=== PATIENT | male | born 1965 | race Caucasian/White ===

== ENCOUNTER → 2020-05-01 | Emergency (ER) | payer OTHER ==
[~2020-05-01] VITALS: Ht 185.4 cm; Wt 102.1 kg
[~2020-05-01] MED LIST: ASPIRIN325 PO; ATORVASTATIN CA40 MG PO; BIOTIN PLUS KE1 EACH PO; COZAAR 25 MG TA25 M1 PO; DIPHENHIST50 MG PO; EFFIENT10 MG PO; GINGER500 MG PO; IBUPROFEN 600600 M1 PO; KRILL OIL 3001 EACH PO; MELATONIN3 MG PO; METOPROLOL TART25 MG PO; MILK THISTLE500 MG PO; NOHOMEMEDICATIONS; POTASSIUM GLUC500 MG PO; ZINC50 M1 PO
[2020-05-01 13:28] LABS: AMP/METHAMP Negative (Negative); BARBITURATES Negative (Negative); BENZODIAZEPINES Negative (Negative); COCAINE Negative (Negative); METHADONE Negative (Negative); OPIATES Negative (Negative); PCP Negative (Negative)
[2020-05-01 13:32] LABS: ABSOLUTE NEUTROPHILS 4.2 thou/uL (1.4-8.2); BASOPHILS 0.4 % (0.0-2.0); EOSINOPHILS 1.8 % (0.0-3.0); HEMATOCRIT 46.2 % (42.0-52.0); HEMOGLOBIN 15.8 gm/dL (14.0-18.0); LYMPHOCYTES 26.9 % (24.0-44.0); MCH 30.5 pg (26.0-34.0); MCHC 34.2 g/dL (28.0-37.0); MCV 89.5 fL (80.0-100.0); MONOCYTES 9.8 % (1.0-8.0); PLATELET COUNT 179 thou/uL (150-400); POLYS 61.1 % (36.0-66.0); RBC 5.17 mil/uL (4.50-6.00); RDW 14.2 % (10.5-14.5); WBC 6.9 thou/uL (4.0-11.0)
[2020-05-01 13:37] LABS: ANION GAP 10 mmol/L (7-16); BUN 21 mg/dL (7-18); CALCIUM 9.2 mg/dL (8.5-10.1); CHLORIDE 104 mmol/L (98-107); CO2 27 mmol/L (21-32); CREATININE 1.1 mg/dL (0.7-1.3); GLUCOSE 130 mg/dL (74-106); POTASSIUM 3.9 mmol/L (3.5-5.1); SODIUM 141 mmol/L (136-145)
[2020-05-01 13:44] LABS: APTT 30.3 Seconds (24.5-32.8); INR 1.1; PROTIME 10.8 Seconds (9.3-11.4)
--- NOTE | 2020-05-01 13:46 | EKG ---
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 Pt: [facility] : 1965 Requested By: Freedom Stewart Order Number: [id number] MD: Akil Milton Measurements Intervals [place] Rate: 89 P: 52 WV: 174 QRS: 4 QRSD: 97 T: -21 QT: 376 QTc: 458 Interpretive Statements Sinus rhythm Borderline T abnormalities, inferior leads Compared to ECG 05/26/2015 07:12:43 T-wave abnormality now present Atrial premature complex(es) no longer present Ventricular premature complex(es) no longer present Electronically Signed On 05-01-2020 13:46:09 CDT by Akil Milton [email or web address] <ELECTRONICALLY SIGNED> By: Akil Milton MD, FAC 05/01/20 1346 1317 1317 Akil Milton MD, FAC /EPI
[2020-05-01 13:47] LABS: ALBUMIN 4.1 g/dL (3.4-5.0); SGOT 23 U/L (15-37); SGPT 41 U/L (30-65); TOTAL BILIRUBIN 0.4 mg/dL (0.2-1.0); TROPONIN-I <0.06 ng/mL (<0.06)
[2020-05-01 14:59] VITALS: BP 136/75
== END ==
LOC: ER 12:27
PROVIDERS: Emergency Medicine
DX: R20.0 Anesthesia of skin (principal); M79.602 Pain in left arm; M79.601 Pain in right arm; F17.210 Nicotine dependence, cigarettes, uncomplicated; Z91.09 Other allergy status, other than to drugs and biological substances

== ENCOUNTER 2020-11-30 13:19 | Emergency (ER) | payer OTHER ==
[~2020-11-30] VITALS: Ht 182.9 cm; Wt 102.1 kg
--- NOTE | ~2020-11-30 | EMS ---
[address] [address] EMS Patient Care Report Name: SHAHEEN POTTS Room #: DEP [facility]#: [id number] Admission: 11/30/20 Attend Phys: Discharge: 11/30/20 Date of : 61 Report #: [id number] THIS REPORT FOR: //name// Report Transmitted: 11/30/2020 16:13 EMS Care Summary [place], [place]/[facility] Incident [id number] @ 11/30/2020 12:58 Incident Location [address] [place] [id number] Patient SHAHEEN POTTS Male, 55 Years 1965 Patient Address [address] [place], [place] [id number] Patient History Cardiac - Stent, Patient Allergies Morphine, Patient Medications ASA, Chief Complaint SVT Disposition Transported No Lights/[place] Dispatch Reason Chest Pain (Non-Traumatic) Transported To [facility] Narrative FIND [facility]. PT IS COMPLAINING OF A SUDDEN ONSET OF CHEST PAIN AND SOA. PT STATES THAT IT JUST STARTED. PT STATES THAT HE ALSO GOT DIAPHORETIC. PT HAS FAST RADIAL PULSE . PT IS MOVED TO COT AND ON EKG. PT IS IN SVT. PT IS MOVED TO UNIT AND A IV IS PLACED. PT IS GIVEN ADENOSINE AND CONVERTS [address] [address] EMS Patient Care Report Name: SHAHEEN POTTS Room #: [facility]#: [id number] Admission: 11/30/20 Attend Phys: Discharge: 11/30/20 Date of : 61 Report #: [id number] TO SINUS TACH. A 2ND 12 LEAD IS DONE AND SHOWS NO ST ELEVATION. PT STATES THAT HE IS FELLING A LITTLE BETTER. PT MAKES NO OTHER COMPLAINTS OR CHANGES IN ROUTE. PT CARE IS TOT RN IN ROOM 8 Initial Vitals @13:03P: 191,SpO2: 96, @13:14P: 105,CO: 0,SpO2: 98, @13:04P: 202, @13:06P: 193,SpO2: 96, @13:08P: 193,BP: 123/86,Pain: 2/10,GCS: 15,SpO2: 96, @13:04P: 199,R: 18,BP: 106/76,Pain: 6/10,GCS: 15,Glucose: 107,SpO2: 95,Revised Trauma: 12,OK Suspected: false Assessments @13:03MENTAL:No Abnormalities,SKIN:HEENT:LUNG SOUNDS:ABDOMEN:PELVIS//GI:EXTREMITIES:PULSE:NEURO: Impression Cardiac arrhythmia/dysrhythmia Procedures @13:1412-Lead ECGResponse: UnchangedSucceeded@13:0612-Lead ECGResponse: UnchangedSucceeded@13:03ALS AssessmentResponse: UnchangedSucceeded@13:043-Lead ECGResponse: UnchangedSucceeded@13:06Saline Lock 10cc (18 ga) Site: Antecubital-LeftResponse: UnchangedSucceeded@13:07Adenosine - 12 Milligrams (mg) - Intravenous (IV)Response: Improved@13:06Oxygen FlowRate: 2 Device: Nasal Cannula (NC) Response: UnchangedSucceeded Timeline 12:56,Call Received 12:56,Dispatch Notified 12:58,Dispatched 12:59,En Route 13:01,On Scene 13:03,At Patient 13:03,ALS Assessment,Response: UnchangedSucceeded, 13:03,BP: / M,PULSE: 191,RR: R,SPO2: 96 Ox,ETCO2: ,BG: ,PAIN: ,GCS: , 13:04,BP: / M,PULSE: 202,RR: R,SPO2: Ox,ETCO2: ,BG: ,PAIN: ,GCS: , 13:04,3-Lead ECG,Response: UnchangedSucceeded, 13:04,BP: 106/76 M,PULSE: 199,RR: 18 R,SPO2: 95 Ox,ETCO2: ,B,PAIN: 6,GCS: 15, 13:06,Saline Lock 10cc 18 ga Site: Antecubital-Left,Response: UnchangedSucceeded, 13:06,Oxygen FlowRate: 2 Device: Nasal Cannula (NC) Response: UnchangedSucceeded, 13:06,12-Lead ECG,Response: UnchangedSucceeded, [address] [address] EMS Patient Care Report Name: SHAHEEN POTTS Room #: DEP [facility]#: [id number] Admission: 11/30/20 Attend Phys: Discharge: 11/30/20 Date of : 61 Report #: [id number] 13:06,BP: / M,PULSE: 193,RR: R,SPO2: 96 Ox,ETCO2: ,BG: ,PAIN: ,GCS: , 13:07,Adenosine - 12 Milligrams (mg) - Intravenous (IV),Response: Improved 13:08,BP: 123/86 M,PULSE: 193,RR: R,SPO2: 96 Ox,ETCO2: ,BG: ,PAIN: 2,GCS: 15, 13:12,Depart Scene 13:14,12-Lead ECG,Response: UnchangedSucceeded, 13:14,BP: / M,PULSE: 105,RR: R,SPO2: 98 Ox,ETCO2: ,BG: ,PAIN: ,GCS: , 13:24,At Destination 13:30,Call Closed Disclaimer v1.1 Copyright 2020 [email or web address] This EMS Care Summary contains data elements from the applicable legal record (which may be displayed differently). It is designed to provide pertinent information for the following purposes: continuity of care, clinical quality, and state data reporting. The complete legal record is available to ED staff and administrators of the receiving hospital in [employer]'s Patient Tracker. All data is provided "as is."
[2020-11-30 13:35] LABS: ABSOLUTE NEUTROPHILS 4.5 thou/uL (1.4-8.2); BASOPHILS 0.8 % (0.0-2.0); EOSINOPHILS 1.8 % (0.0-3.0); HEMATOCRIT 47.2 % (42.0-52.0); HEMOGLOBIN 16.3 gm/dL (14.0-18.0); LYMPHOCYTES 30.6 % (24.0-44.0); MCH 30.4 pg (26.0-34.0); MCHC 34.5 g/dL (28.0-37.0); MCV 88.4 fL (80.0-100.0); MONOCYTES 7.8 % (1.0-8.0); PLATELET COUNT 197 thou/uL (150-400); RBC 5.35 mil/uL (4.50-6.00); RDW 14.3 % (10.5-14.5); WBC 7.7 thou/uL (4.0-11.0)
[2020-11-30 13:46] LABS: ANION GAP 14 mmol/L (7-16); BUN 16 mg/dL (7-18); CALCIUM 9.1 mg/dL (8.5-10.1); CHLORIDE 105 mmol/L (98-107); CO2 24 mmol/L (21-32); CREATININE 1.3 mg/dL (0.7-1.3); GLUCOSE 137 mg/dL (74-106); POTASSIUM 3.7 mmol/L (3.5-5.1); SODIUM 143 mmol/L (136-145)
[2020-11-30 13:51] LABS: ALBUMIN 3.9 g/dL (3.4-5.0); SGOT 31 U/L (15-37); SGPT 49 U/L (16-63); TOTAL BILIRUBIN 0.5 mg/dL (0.2-1.0); TOTAL PROTEIN 7.9 g/dL (6.4-8.2); TROPONIN-I <0.06 ng/mL (<0.06)
[2020-11-30 14:02] LABS: APTT 26.8 Seconds (24.5-32.8); D-DIMER 0.38 ug/mLFEU (0.19-0.50); INR 1.03; PROTIME 11.2 Seconds (10.5-12.1)
[2020-11-30 15:10] VITALS: BP 108/85
--- NOTE | 2020-11-30 15:56 | EKG ---
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: : 1965 Requested By: Emanuel Stover Order Number: [id number] MD: Akil Milton Measurements Intervals [place] Rate: 107 P: 68 MT: 159 QRS: 38 QRSD: 96 T: -61 QT: 348 QTc: 465 Interpretive Statements Sinus tachycardia Borderline repolarization abnormality Compared to ECG 05/01/2020 13:17:48 Sinus rhythm no longer present T-wave abnormality no longer present Electronically Signed On 11-30-2020 15:56:04 CDT by Akil Milton [email or web address] <ELECTRONICALLY SIGNED> By: Akil Milton MD, [facility] 11/30/20 1556 1326 1326 Akil Milton MD, FACC /EPI
== END 2020-11-30 15:11 | disposition home or self-care (01) ==
LOC: ER 13:19
PROVIDERS: Emergency Medicine
DX: I47.1 Supraventricular tachycardia (principal); F17.210 Nicotine dependence, cigarettes, uncomplicated; F41.9 Anxiety disorder, unspecified; I25.10 Atherosclerotic heart disease of native coronary artery without angina pectoris

== ENCOUNTER 2021-06-01 10:29 | Emergency (ER) | payer OTHER ==
[~2021-06-01] VITALS: Ht 182.9 cm; Wt 99.8 kg
--- NOTE | ~2021-06-01 | EMS ---
[address] [address] EMS Patient Care Report Name: SHAHEEN POTTS Room #: DEP [facility]#: [id number] Admission: 06/01/21 Attend Phys: Discharge: 06/01/21 Date of : 61 Report #: [id number] THIS REPORT FOR: //name// Report Transmitted: 06/03/2021 14:37 EMS Care Summary [place], [place]/[facility] Incident [id number] @ 06/01/2021 10:06 Incident Location [address] [place] [id number] Patient SHAHEEN POTTS Male, 56 Years 1965 Patient Address unknown Patient History Cardiac Arrythmia,Cardiac Condition - Other,Cardiac - Stent, Patient Allergies No known allergies, Patient Medications Nitroglycerin, Chief Complaint SVT Disposition Transported No Lights/[place] Dispatch Reason Sick Person Transported To [facility] Narrative Upon arrival PT was in the upright sitting position. PT had a CC of CP with onset of 9am this morning. PT stated he had taken a Nitro prior to EMS arrival. PT was assisted to stretcher and taken to back of ambulance for further medical evaluation and intervention. PT was then monitored while en route to hospital for any change in condition. [address] [address] EMS Patient Care Report Name: SHAHEEN POTTS Room #: [facility] [id number] Admission: 06/01/21 Attend Phys: Discharge: 06/01/21 Date of : 61 Report #: [id number] Initial Vitals @10:14P: 190,R: 18,BP: 117/84,Pain: 6/10,GCS: 15,SpO2: 15,Revised Trauma: 12, @10:19P: 185,R: 18,BP: 108/78,Pain: 6/10,GCS: 15,SpO2: 100,Revised Trauma: 12, Assessments @10:12MENTAL:No Abnormalities,SKIN:No Abnormalities,HEENT:Head/Face: No Abnormalities,Eyes: No Abnormalities,Neck/Airway: No Abnormalities,LUNG SOUNDS:General: No Abnormalities,Left Upper: No Abnormalities,Right Upper: No Abnormalities,Left Lower: No Abnormalities,Right Lower: No Abnormalities,ABDOMEN:General: No Abnormalities,Left Upper: No Abnormalities,Right Upper: No Abnormalities,Left Lower: No Abnormalities,Right Lower: No Abnormalities,PELVIS//GI:No Abnormalities,EXTREMITIES:PULSE:Radial: 2+ Normal,NEURO:No Abnormalities, Impression Chest Pain / Discomfort Procedures @10:12 ALS Assessment Response: UnchangedSucceeded @10:15 12-Lead ECG Response: UnchangedSucceeded @10:15 IV Therapy - Saline Lock 0cc (20 ga) Site: Antecubital-Right Response: UnchangedSucceeded @10:16 Aspirin - 324 Milligrams (mg) - Oral Response: Unchanged @PTANitrostat - 0.4 Milligrams (mg) - Sublingual Response: Unchanged @10:22 Adenosine - 12 Milligrams (mg) - Intravenous (IV) Response: Unchanged 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,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 - 0.4 Milligrams (mg) - Sublingual,Response: Unchanged 10:04,Call Received 10:04,Dispatch Notified 10:06,Dispatched 10:07,En Route 10:11,On Scene 10:12,At Patient 10:12,ALS Assessment,Response: UnchangedSucceeded, 10:14,BP: 117/84 M,PULSE: 190,RR: 18 R,SPO2: 15 Ox,ETCO2: ,BG: ,PAIN: 6,GCS: 15, 10:15,12-Lead ECG,Response: UnchangedSucceeded, 10:15,IV Therapy - Saline Lock 0cc 20 ga Site: Antecubital-Right,Response: UnchangedSucceeded, 10:16,Aspirin - 324 Milligrams (mg) - Oral,Response: Unchanged 10:19,BP: 108/78 M,PULSE: 185,RR: 18 R,SPO2: 100 Ox,ETCO2: ,BG: ,PAIN: 6,GCS: 15, 10:22,Adenosine - 12 Milligrams (mg) - Intravenous (IV),Response: Unchanged [facility] [address] [place] [address] EMS Patient Care Report Name: SHAHEEN POTTS Lo Room #: [facility]ina#: [id number] Admission: 06/01/21 Attend Phys: Discharge: 06/01/21 Date of : 61 Report #: [id number] 10:25,Depart Scene 10:25,At Destination 10:43,Call Closed Disclaimer v1.1 Copyright 202 [employer] This EMS Care Summary contains data elements from the applicable legal record (which may be displayed differently). It is designed to provide pertinent information for the following purposes: continuity of care, clinical quality, and state data reporting. The complete legal record is available to ED staff and administrators of the receiving hospital in [employer]'s Patient Tracker. All data is provided "as is."
[2021-06-01 12:03] LABS: ABSOLUTE NEUTROPHILS 6.7 thou/uL (1.4-8.2); BASOPHILS 0.3 % (0.0-2.0); EOSINOPHILS 1.3 % (0.0-3.0); HEMATOCRIT 48.4 % (42.0-52.0); HEMOGLOBIN 16.6 gm/dL (14.0-18.0); LYMPHOCYTES 31.3 % (24.0-44.0); MCH 30.7 pg (26.0-34.0); MCHC 34.3 g/dL (28.0-37.0); MCV 89.5 fL (80.0-100.0); PLATELET COUNT 217 thou/uL (150-400); POLYS 58.1 % (36.0-66.0); RBC 5.41 mil/uL (4.50-6.00); WBC 11.6 thou/uL (4.0-11.0)
[2021-06-01 12:06] LABS: CALCIUM 8.8 mg/dL (8.5-10.1); CREATININE 1.3 mg/dL (0.7-1.3); POTASSIUM 4.2 mmol/L (3.5-5.1)
[2021-06-01 12:15] LABS: MAGNESIUM 2.1 mg/dL (1.8-2.4)
[2021-06-01] MEDS ORDERED: TOPROL XL50 MG PO (12:39)
[2021-06-01 12:58] VITALS: BP 95/67
--- NOTE | 2021-06-03 07:26 | EKG ---
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 : 1965 Requested By: Stef Ortega Order Number: [id number] MD: Akil Milton Measurements Intervals [place] Rate: 186 P: 0 ID: QRS: -16 QRSD: 113 T: 119 QT: 303 QTc: 533 Interpretive Statements Supraventricular tachycardia Borderline intraventricular conduction delay Repolarization abnormality, prob rate related Compared to ECG 11/30/2020 13:26:01 Sinus tachycardia no longer present Electronically Signed On 06-03-2021 7:26:05 CDT by Akil Milton [email or web address] <ELECTRONICALLY SIGNED> By: Akil Milton MD, [facility] 06/03/21 0726 1030 1030 Akil Milton MD, FACC /EPI
--- NOTE | 2021-06-03 07:26 | EKG ---
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 : 1965 Requested By: Stef Ortega Order Number: [id number] MD: Akil Milton Measurements Intervals [place] Rate: 106 P: 54 NH: 165 QRS: 3 QRSD: 94 T: 116 QT: 351 QTc: 467 Interpretive Statements Sinus tachycardia Probable left atrial enlargement Anterior infarct, old Compared to ECG 06/01/2021 10:40:23 Supraventricular tachycardia no longer present Sinus pause or arrest no longer present Early repolarization no longer present Myocardial infarct finding still present Electronically Signed On 06-03-2021 7:26:20 CDT by Akil Milton [email or web address] <ELECTRONICALLY SIGNED> By: Akil Milton MD, [facility] 06/03/21 0726 1042 1042 Akil Milton MD, [facility] /EPI
--- NOTE | 2021-06-03 07:26 | EKG ---
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 : 1965 Requested By: Stef Ortega Order Number: [id number] MD: Akil Milton Measurements Intervals [place] Rate: 183 P: 0 FL: QRS: -26 QRSD: 107 T: 75 QT: 303 QTc: 529 Interpretive Statements Supraventricular tachycardia Sinus pause Borderline left axis deviation Probable anteroseptal infarct, old Repolarization abnormality, prob rate related Compared to ECG 11/30/2020 13:26:01 Sinus pause or arrest now present Myocardial infarct finding now present Sinus tachycardia no longer present Electronically Signed On 06-03-2021 7:26:17 CDT by Akil Milton [email or web address] <ELECTRONICALLY SIGNED> By: Akil Milton MD, FACC 06/03/21 0726 1040 1040 Akil Milton MD, FAC /EPI
== END 2021-06-01 12:59 | disposition home or self-care (01) ==
LOC: ER 10:29
PROVIDERS: Student in an Organized Health Care Education/Training Program
DX: I47.1 Supraventricular tachycardia (principal); F41.9 Anxiety disorder, unspecified; F17.210 Nicotine dependence, cigarettes, uncomplicated; Z88.5 Allergy status to narcotic agent